=== PATIENT | male | born 1965 | race Caucasian/White ===

== ENCOUNTER 2020-09-30 03:49 | Observation (INO) | payer SELFPAY ==
[2020-09-30] VITALS (48 sets, daily range): BP systolic 107–172; BP diastolic 52–123; PULSE 75–152; RESP 9–57; TEMP 36.6–37.1; O2SAT 92–96; BMI 37.3
--- NOTE | 2020-09-30 03:50 | XRR_ITS ---
PROCEDURE INFORMATION: Exam: XR Chest Exam date and time: 09/30/2020 3:56 AM Age: 54 years old Clinical indication: Patient HX: Patient woke up feeling elevated heart rate. Afib on monitor. TECHNIQUE: Imaging protocol: XR of the chest. Views: 1 view. COMPARISON: No relevant prior studies available. FINDINGS: Lungs: There are multiple calcified pulmonary nodules consistent with prior granulomatous disease. Pleural spaces: Unremarkable. No pleural effusion. No pneumothorax. Heart/Mediastinum: Unremarkable. No cardiomegaly. Bones/joints: Unremarkable. XR/XR chest 1V portable [id number] IMPRESSION:
--- NOTE | 2020-09-30 03:51 | ECG_ITS ---
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 Measurements Intervals [place] Rate: 150 P: MO: QRS: 33 QRSD: 85 T: 0 QT: 151 QTc: 239 Interpretive Statements ATRIAL FLUTTER/TACHYCARDIA WITH RAPID VENTRICULAR RESPONSE NONSPECIFIC ST & T-WAVE ABNORMALITY CRITICAL TEST RESULT No previous ECG available for comparison Electronically Signed On 09-30-2020 23:45:38 CDT by Renato Malloy M.D. [id number] f
--- NOTE | 2020-09-30 04:08 | W.ED.GENADLT ---
HPI - General Adult General: Chief complaint: General Medical Stated complaint: afib Time Seen by Provider: 09/30/20 03:50 Source: patient Mode of arrival: ambulatory Limitations: no limitations History of Present Illness: HPI narrative: 54-year-old male states that he started having palpitations tonight at home. States he felt like his heart was racing he checked his heart rate and it was in the 150s. Patient here is in A. fib. He has no history of A. fib in the past. He denies any chest pain or shortness of breath. He denies having any palpitations like this in the past. He denies any worsening or improving factors. Associated symptoms: Reports palpitations; Deny dyspnea, headache(s), nausea, rash or vomiting Review of Systems Const: Denies: fever(s), chills, body aches or change in appetite Eyes: Denies: blurry vision or eye discomfort ENMT: Denies: throat pain or dental pain Card: Reports: palpitations and irregular heart rhythm Resp: Denies: dyspnea GI: Denies: abdominal pain, nausea, vomiting or diarrhea : Denies: dysuria Musc: Denies: neck pain or back pain Skin/Breast: Denies: rash Neuro: Denies: headache(s) Psych: Denies: depression Mark/Lymph: Denies: easy bruising All/Imm: Denies: urticaria Physical Exam Const: COMMON NORMALS: no acute distress, patient oriented x3 and healthy appearing HENMT: COMMON NORMALS: normocephalic and atraumatic HEAD & SCALP: normocephalic and atraumatic Eye: COMMON NORMALS: Equal, round and reactive pupils present and EOMs intact bilaterally PUPIL: Yes Equal, round and reactive pupils present Neck/C-Spine: COMMON NORMALS: full ROM and supple Chest: COMMONS NORMALS: normal inspection of the chest and normal palpation of entire chest wall Resp: COMMON NORMALS: normal respiratory effort, No retractions, No use of accessory muscles and clear to auscultation bilaterally AUSCULTATION: clear to auscultation bilaterally Cardio: COMMON NORMALS: No murmurs present (Cardio) RATE: tachycardic RHYTHM: abnormal rhythm irregularly irregular GI: COMMON NORMALS: Normal to inspection, nondistended, normoactive bowel sounds present, Soft to palpation, non-tender and no masses PALPATION: Yes Soft to palpation Extremity: COMMON NORMALS: normal to inspection and full ROM Neuro: COMMON NORMALS: patient oriented x3, moves all extremities and no focal motor deficits Psych: COMMON NORMALS: mental status grossly normal, Normal thought process present and cooperative THOUGHT PROCESS: Normal thought process present Skin: COMMON NORMALS: no rashes or lesions noted and no wounds GENERAL SKIN EXAM: no rashes or lesions noted Course Vital Signs: Vital signs: Vital Signs Temperature 98.5 F 09/30/20 03:59 Pulse Rate 78 09/30/20 04:58 Respiratory Rate 16 09/30/20 04:49 Blood Pressure 148/101 09/30/20 04:58 Pulse Oximetry 95 09/30/20 04:49 MDM - General Adult MDM Narrative: Medical decision making narrative: Patient presents here with new onset atrial flutter. Patient's heart rate was originally in the 150s is now improved here after Cardizem. I spoke to hospitalist will admit for his new onset atrial flutter. Patient's had no chest pain and has been well-appearing here. Lab Data: Labs: Lab Results 09/30/20 09/30/20 09/30/20 Range/Units 04:05 04:05 04:05 WBC 9.7 (4.0-10.0) 10^3/ uL RBC 5.98 H (4.1-5.3) 10^6/u L Hgb 18.1 H (11.7-16.6) g/dL Hct 52.3 H (42.0-52.0) % MCV 87.5 (80-94) fL MCH 30.3 (28.0-34.0) pg MCHC 34.6 (30.0-36.0) g/dL RDW 15.6 H (12.1-15.1) % Plt Count 205 (130-400) 10^3/c mm MPV 11.3 H (7.4-10.4) fL Neut % (Auto) 50.8 % Lymph % (Auto) 34.2 % Saline % (Auto) 10.8 % Eos % (Auto) 3.1 % Baso % (Auto) 0.8 % Neut # (Auto) 4.91 (1.8-7.7) 10^3/u L Lymph # (Auto) 3.3 (0.8-4.8) 10^3/u L Saline # (Auto) 1.0 H (0.2-0.9) 10^3/u L Eos # (Auto) 0.3 (0.0-0.8) 10^3/u L Baso # (Auto) 0.1 (0.0-0.1) 10^3/u L Nucleated RBC % (a uto) 0 % Nucleated RBCs # 0.0 /100WBC PT (12.1-14.9) SECO NDS INR (0.8-1.2) Sodium Cancelled Potassium Cancelled Chloride Cancelled Carbon Dioxide Cancelled Anion Gap Cancelled BUN Cancelled Creatinine Cancelled GFR Calculation Cancelled Glucose Cancelled Calculated Osmolal ity Cancelled Calcium Cancelled Total Bilirubin Cancelled AST Cancelled ALT Cancelled Alkaline Phosphata se Cancelled Troponin T Baselin e Cancelled Total Protein Cancelled Albumin Cancelled Globulin Cancelled 09/30/20 Range/Units 04:30 WBC (4.0-10.0) 10^3/ uL RBC (4.1-5.3) 10^6/u L Hgb (11.7-16.6) g/dL Hct (42.0-52.0) % MCV (80-94) fL MCH (28.0-34.0) pg MCHC (30.0-36.0) g/dL RDW (12.1-15.1) % Plt Count (130-400) 10^3/c mm MPV (7.4-10.4) fL Neut % (Auto) % Lymph % (Auto) % Saline % (Auto) % Eos % (Auto) % Baso % (Auto) % Neut # (Auto) (1.8-7.7) 10^3/u L Lymph # (Auto) (0.8-4.8) 10^3/u L Saline # (Auto) (0.2-0.9) 10^3/u L Eos # (Auto) (0.0-0.8) 10^3/u L Baso # (Auto) (0.0-0.1) 10^3/u L Nucleated RBC % (a uto) % Nucleated RBCs # /100WBC PT 12.90 (12.1-14.9) SECO NDS INR 0.94 (0.8-1.2) Sodium Potassium Chloride Carbon Dioxide Anion Gap BUN Creatinine GFR Calculation Glucose Calculated Osmolal ity Calcium Total Bilirubin AST ALT Alkaline Phosphata se Troponin T Baselin e Total Protein Albumin Globulin Imaging Data^: CXR: Attestation: I personally reviewed and interpreted this imaging study as follows: My impression: No acute abnormality EKG Data^: EKG 1: Attestation: I personally reviewed and interpreted this EKG as follows: EKG interpretation date: 09/30/20 EKG interpretation time: 04:17 Interpretation: atrial flutter hr [address] or t wave abnormalities qrs 85 qtc 236 EKG 2: Attestation: I personally reviewed and interpreted this EKG as follows: EKG interpretation date: 09/30/20 EKG interpretation time: 04:39 Interpretation: atrial flutter hr [address] or t wave abnormalities qrs 85 qtc 401 Critical Care Time Critical Care Time: Critical Care Time: Yes Total Critical Care Time: 36 Attestation: This case had a high probability of a clinically significant, sudden, or life threatening deterioration of this patient's condition which required my full and direct attention, intervention and personal management. Discharge Plan Discharge Patient Disposition: Admitted As Inpatient Clinical Impression: Atrial flutter Qualifiers: Atrial flutter type: unspecified Qualified Code(s): I48.92 - Unspecified atrial flutter Condition: Stable Coding Level of Care Code ED Physical Ther for [facility] Fwd Exam Comprehensive
[2020-09-30] MEDS: sodium chloride 0.9% 1,000 ML 999 ML IV (04:26)
[2020-09-30 04:28] LABS: Basophils # 0.1 10^3/uL (0.0-0.1); Basophils % 0.8 %; Eosinophils # 0.3 10^3/uL (0.0-0.8); Eosinophils % 3.1 %; Hematocrit 52.3 % (42.0-52.0); Hemoglobin 18.1 g/dL (11.7-16.6); Lymphocytes # 3.3 10^3/uL (0.8-4.8); Lymphocytes % 34.2 %; Mean Corpuscular HGB Conc 34.6 g/dL (30.0-36.0); Mean Corpuscular Hemoglobin 30.3 pg (28.0-34.0); Mean Corpuscular Volume 87.5 fL (80-94); Mean Platelet Volume 11.3 fL (7.4-10.4); Monocytes % 10.8 %; Neutrophils # 4.91 10^3/uL (1.8-7.7); Neutrophils % 50.8 %; Nucleated Red Blood Cells % 0 %; Platelet Count 205 10^3/cmm (130-400); Red Blood Count 5.98 10^6/uL (4.1-5.3); Red Cell Distribution Width 15.6 % (12.1-15.1); White Blood Count 9.7 10^3/uL (4.0-10.0)
--- NOTE | 2020-09-30 04:30 | ECG_ITS ---
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 Measurements Intervals [place] Rate: 74 P: VA: QRS: 38 QRSD: 85 T: -4 QT: 374 QTc: 416 Interpretive Statements ATRIAL FLUTTER/TACHYCARDIA ST DEVIATION AND MODERATE T-WAVE ABNORMALITY, CONSIDER INFERIOR ISCHEMIA [-0.1+ mV T WAVE IN II/aVF] Compared to ECG 09/30/2020 04:17:54 Possible ischemia now present T-wave abnormality still present Electronically Signed On 09-30-2020 23:45:43 CDT by Renato Malloy M.D. [id number] f
[2020-09-30 04:52] LABS: INR 0.94 (0.8-1.2)
[2020-09-30 05:16] LABS: Troponin(5th) Baseline 20 ng/L (0-15)
[2020-09-30 05:19] LABS: Alanine Aminotransferase 31 U/L (0-41); Alkaline Phosphatase 71 IU/L (40-130); Anion Gap 12.7 (5-19); Aspartate Amino Transferase 19 U/L (0-40); Blood Urea Nitrogen 16 mg/dL (6-20); Calcium 8.3 mg/dL (8.5-10.5); Carbon Dioxide 28 mmol/L (22-29); Chloride 103 mmol/L (98-107); Globulin 2.5 g/dL (1.3-4.6); Glucose 102 mg/dL (65-115); Osmolality Calculated 291 mOsm/kg (285-295); Potassium 3.7 mmol/L (3.5-5.1); Sodium 140 mmol/L (136-145); Total Bilirubin 0.5 mg/dL (0.15-1.2); Total Protein 6.5 g/dL (6.6-8.7)
--- NOTE | 2020-09-30 06:07 | PM.HP ---
Providers/Chief Complaint Admitting Physician: Mark Bran Primary Care Provider: Sathya Toledo MD Chief Complaint: afib History of Present Illness George Dubose JR is a 54 year old male With no significant past medical history who is presenting to the emergency room due to complaints of palpitation which started last night suddenly. Described as severe constant. No associated chest pain, shortness of breath, diaphoresis, dizziness or lightheadedness. Emergency room he is found to have atrial flutter with RVR. Heart rate of 150. He was given a bolus of diltiazem and started on diltiazem drip. Heart rate dropped to 70s. Currently he feels much better. His palpitations have resolved. He denies any similar episodes in the past. He does not take any medications except for testosterone prescribed by his primary care physician. Denies any history of thyroid disease, blood clots or bleeding disorders. No history of heart disease. Family history. Denies family history of atrial fibrillation. Social history. Reports regular alcohol. Denies tobacco and drugs. Review of Systems General: Reports: 10 or more systems reviewed and unremarkable except in HPI and below Medications/Allergies Allergies Allergy/AdvReac Type Severity Reaction Status Date / Time No Known Allergies Allergy Verified 09/30/20 04:06 Vitals/I&O/Wt Last Vital Signs Temp 98.5 F 09/30/20 03:59 Pulse 78 09/30/20 04:58 Resp 16 09/30/20 04:49 BP 148/101 09/30/20 04:58 Pulse Ox 95 09/30/20 04:49 Weight last 48 hrs Weight 124.738 kg Physical Exam Narrative: EXAM NARRATIVE: Currently the patient is awake alert oriented. No acute distress. Mood and affect are appropriate. Responses are adequate. Eyes PERRL, extraocular muscles are intact Normal speech No facial asymmetry Neck is supple. No JVD Lungs are clear to auscultation bilaterally. No wheezes or crackles Heart S1, S2, irregular Abdomen soft, obese, nontender, bowel sounds are present Extremities no edema cyanosis or calf tenderness bilaterally No focal weakness. Data : 09/30/20 04:05 09/30/20 04:45 Other Labs: Laboratory Results WBC 9.7 10^3/uL (4.0-10.0) 09/30/20 04:05 RBC 5.98 10^6/uL (4.1-5.3) H 09/30/20 04:05 Hgb 18.1 g/dL (11.7-16.6) H 09/30/20 04:05 Hct 52.3 % (42.0-52.0) H 09/30/20 04:05 MCV 87.5 fL (80-94) 09/30/20 04:05 MCH 30.3 pg (28.0-34.0) 09/30/20 04:05 MCHC 34.6 g/dL (30.0-36.0) 09/30/20 04:05 RDW 15.6 % (12.1-15.1) H 09/30/20 04:05 Plt Count 205 10^3/cmm (130-400) 09/30/20 04:05 MPV 11.3 fL (7.4-10.4) H 09/30/20 04:05 Neut % (Auto) 50.8 % 09/30/20 04:05 Lymph % (Auto) 34.2 % 09/30/20 04:05 Ralls % (Auto) 10.8 % 09/30/20 04:05 Eos % (Auto) 3.1 % 09/30/20 04:05 Baso % (Auto) 0.8 % 09/30/20 04:05 Neut # (Auto) 4.91 10^3/uL (1.8-7.7) 09/30/20 04:05 Lymph # (Auto) 3.3 10^3/uL (0.8-4.8) 09/30/20 04:05 Ralls # (Auto) 1.0 10^3/uL (0.2-0.9) H 09/30/20 04:05 Eos # (Auto) 0.3 10^3/uL (0.0-0.8) 09/30/20 04:05 Baso # (Auto) 0.1 10^3/uL (0.0-0.1) 09/30/20 04:05 Nucleated RBC % (auto) 0 % 09/30/20 04:05 Nucleated RBCs # 0.0 /100WBC 09/30/20 04:05 PT 12.90 SECONDS (12.1-14.9) 09/30/20 04:30 INR 0.94 (0.8-1.2) 09/30/20 04:30 Sodium 140 mmol/L (136-145) 09/30/20 04:45 Potassium 3.7 mmol/L (3.5-5.1) 09/30/20 04:45 Chloride 103 mmol/L (98-107) 09/30/20 04:45 Carbon Dioxide 28 mmol/L (22-29) 09/30/20 04:45 Anion Gap 12.7 (5-19) 09/30/20 04:45 BUN 16 mg/dL (6-20) 09/30/20 04:45 Creatinine 0.8 mg/dL (0.7-1.2) 09/30/20 04:45 GFR Calculation 100.0 mL/min (90-130) 09/30/20 04:45 Glucose 102 mg/dL (65-115) 09/30/20 04:45 Calculated Osmolality 291 mOsm/kg (285-295) 09/30/20 04:45 Calcium 8.3 mg/dL (8.5-10.5) L 09/30/20 04:45 Total Bilirubin 0.5 mg/dL (0.15-1.2) 09/30/20 04:45 AST 19 U/L (0-40) 09/30/20 04:45 ALT 31 U/L (0-41) 09/30/20 04:45 Alkaline Phosphatase 71 IU/L (40-130) 09/30/20 04:45 Troponin T Baseline 20 ng/L (0-15) H 09/30/20 04:45 Total Protein 6.5 g/dL (6.6-8.7) L 09/30/20 04:45 Albumin 4.0 g/dL (3.5-5.2) 09/30/20 04:45 Globulin 2.5 g/dL (1.3-4.6) 09/30/20 04:45 I was unable to locate his EKG. However spoke with Dr. Herrera. According to him no acute ischemic changes. Atrial flutter with RVR. Chest x-ray reviewed personally. No evidence of acute cardiopulmonary abnormalities. Please review official radiology report when it is available. A&P Additional A&P Information 54-year-old male with no significant past medical history who is presenting with palpitation and is found to have atrial flutter with RVR. A flutter with RVR. Currently on diltiazem drip with controlled heart rate. We will admit him for observation to stepdown unit. We will continue diltiazem drip. Will request cardiology evaluation in the morning. We will check his TSH and fasting lipids. Possible dehydration. Hemoglobin is elevated. Most likely due to testosterone therapy. However dehydration is also possible. We will hydrate him gently and reevaluate. EtOH. Reports daily alcohol use. We will start him on thiamine. Most likely he will be discharged home soon and I do not expect him to develop withdrawals. However if he remains in the hospital [facility] protocol management would be appropriate. DVT prophylaxis. Lovenox. CODE STATUS. He wants to be full code. The plan of care was discussed with the patient and his . They verbalized understanding and agreement. Attestations Medical Necessity Statement*: Observation Coding Level of Care Code Acute Automotive Technology Instructor for Frankie Dial
[2020-09-30 06:49] LABS: Chol HDL Ratio 5.74 mg/dL (1.0-5.00); Cholesterol 195 mg/dL (0-200); HDL Cholesterol 34 mg/dL (60-100); LDL Cholesterol Calculated 94 mg/dL (50-129); LDL HDL Ratio 2.76 RATIO (0.00-3.22); Magnesium 2.1 mg/dL (1.7-2.3); Thyroid Stimulating Hormone 5.32 uIU/mL (0.27-4.20); Triglycerides 334 mg/dL (0-150)
[2020-09-30 07:36] LABS: Troponin 5 2HR 14.92 ng/L (0-15); Troponin 5 2HR Delta -5.08 ABS# (0-10)
--- NOTE | 2020-09-30 08:13 | USCV_ITS ---
Sedrick SOTO George Age: 54 Gender: M : 1965 Exam Date: 09/30/2020 10:34 Ordering Phys: Jose Driscoll MD Technologist: RASHMI [place] [facility] [place]: AFIB BP: 114 / 71 HR: 74 Rhythm: Sinus Technical Quality: Adequate MEASUREMENTS (Male / Female) Normal Values 2D ECHO LV Diastolic Diameter PLAX 3.5 cm 4.2 - 5.9 / 3.9 - 5.3 cm LV Systolic Diameter PLAX 1.8 cm LV Chamber Size 3.4 cm IVS Diastolic Thickness 2.0 cm 0.6 - 1.0 / 0.6 - 0.9 cm IVS Systolic Thickness 2.0 cm LVPW Diastolic Thickness 1.9 cm 0.6 - 1.0 / 0.6 - 0.9 cm LVPW Systolic Thickness 2.6 cm RV Chamber Size 3.6 cm LVOT Diameter 2.0 cm LV Ejection Fraction 2D Teich 79.6 % LV Ejection Fraction MOD 2C 38.2 % LV Ejection Fraction 2C AL 42.4 % LA Diameter 3.5 cm LA Width 2.9 cm LA Height 4.8 cm RA Width 2.5 cm RA Height 4.1 cm Aorta at Sinotubular Diameter 3.0 cm M-MODE LV Diastolic Diameter MM 4.0 cm 4.2 - 5.9 / 3.9 - 5.3 cm LV Systolic Diameter MM 2.4 cm LV Ejection Fraction MM Teich 72.2 % IVS Diastolic Thickness MM 1.2 cm 0.6 - 1.0 / 0.6 - 0.9 cm IVS Systolic Thickness MM 1.2 cm LVPW Diastolic Thickness MM 1.0 cm 0.6 - 1.0 / 0.6 - 0.9 cm LVPW Systolic Thickness MM 1.7 cm Aortic Annulus Diameter 3.7 cm LA Ao Ratio MM 1.0 MV E Point Septal Separation 0.9 cm DOPPLER AV Peak Velocity 133.0 cm/s LVOT Peak Velocity 125.7 cm/s AV Area Cont Eq vti 2.7 cm squared AV Area Cont Eq pk 3.0 cm squared MV Area PHT 4.3 cm squared Mitral E to A Ratio 3.5 MV E' Velocity 53.0 cm/s Mitral E to MV E' Ratio 5.8 Mitral E to LV E' Lateral Ratio 5.7 Mitral E to LV E' Septal Ratio 5.9 TR Peak Velocity 189.0 cm/s TR Peak Gradient 14.3 mmHg TV Peak E Velocity 78.0 cm/s Right Atrial Pressure 3.0 mmHg Pulmonary Artery Systolic Pressu 17.3 mmHg PV Peak Velocity 84.0 cm/s RV Acceleration Time 0.1 s RV Ejection Time 0.3 s RV AcT/ET 0.4 FINDINGS Left Ventricle Normal left ventricular cavity size. Normal left ventricular systolic function. No regional wall motion abnormalities. Left ventricular ejection fraction is estimated at 65 %. Grade II/IV diastolic dysfunction, moderately elevated filling pressures. Right Ventricle The right ventricle is normal in size and function. Right Atrium The right atrium is normal in size. Left Atrium The left atrium is normal in size. Mitral Valve Structurally normal mitral valve without significant stenosis or prolapse. There is no mitral regurgitation. Aortic Valve Structurally normal aortic valve without significant sclerosis or stenosis. There is no aortic regurgitation. Tricuspid Valve Structurally normal tricuspid valve without significant stenosis or regurgitation. Pulmonary artery systolic pressure is normal. Pulmonic Valve Structurally normal pulmonic valve without significant stenosis. There is no pulmonic regurgitation. Pericardium Normal pericardium without effusion. Aorta Normal ascending aorta dimension. CONCLUSIONS 1-Normal left ventricular cavity size. Normal left ventricular systolic function. No regional wall motion abnormalities. Left ventricular ejection fraction is estimated at 65 %. Grade II/IV diastolic dysfunction, moderately elevated filling pressures. 2-There is no pericardial effusion. 3-No significant valve abnormalities. 4-Pulmonary artery systolic pressure is within normal limits. 5-Right atrial pressure is around 5 mm of mercury. 6-There are no prior echocardiogram studies to compare. Gi Stoll MD (Electronically Signed) Final Date: 30 Sep 2020 21:04 S
[2020-09-30 08:43] LABS: D Dimer 0.31 ug/mIFEU (0-0.59)
[2020-09-30 08:47] LABS: NT Pro B Type Natriuretic Pept 504 pg/mL (0-125)
[2020-09-30] MEDS: dilTIAZem 60 mg Tablet PO ×3 (09:13→20:02)
[2020-09-30] MEDS: enoxaparin 40 mg/0.4 mL Syringe SUBCUT (09:14)
[2020-09-30] MEDS: thiamine 100 mg Tablet PO (09:15)
[2020-09-30] MEDS: sodium chloride 0.9% 1,000 ML 75 ML IV (09:16)
--- NOTE | 2020-09-30 09:40 | PC.CHAP ---
Pastoral Care Encounter/Spiritual Assessment Type of Contact [] Declined other spatial scientist visit [] Patient/Family/Request visit [] Outpatient visit [] Follow-up visit [] Physician referral [] Code/Alert [x] Routine visit [] Staff referral [] Actively dying [] Patient sleeping [] Family support [] [] Out of room [] Palliative care [] [x] Receiving care in room [] Pre-surgical visit [] Trauma [] Long length of stay [] ICU visit [] Other: Relational/Emotional Strength [x] Patient feels connected with others/family/visitors/staff [x] Distress [] Loneliness/isolation [] Abandonment Spirituality of Patient [x] Person of Corrine [] Attends Judaism of their [place] [x] Believes in Prayer [] Reads Bible or Voodoo materials [] There are Spiritual issues to be addressed Access Clerk Interventions [x] Prayer [x] Active listening [x] Non-anxious presence [x] Spiritual/emotional support [] Crisis/trauma care [x] Spiritual counseling [] Bereavement support [] Provided bereavement packet [] Provided Bible/devotional materials [] Provided toy/stuffed animal, coloring book to patient or family member [] Provided Communion [] Anointing/[place] [] Salvation [x] Completed spiritual assessment [] Other: Impact on Illness or Injury [] Angry [] Fearful [x] Anxious [] Often cries [] Exhaustion [] Unable to work [] Unable to attend mu-ism [] Unable to walk/stand [] Unable to read [] Unable to drive [] Unable to eat/drink [] Unable to sleep [] Unable to be with family [] Patient intubated [] Other: Summary A-jun his heart going lilliam to nornal going home, has a good attitude Time spent with patient 10 mins
--- NOTE | 2020-09-30 09:51 | ECG_ITS ---
[facility] Test Date: 2020-09-30 Pat Name: George Dubose JR Department: Room: 105 Gender: Male Trouble Clerk: : 1965 Requested By: Mariela Herrera Order Number: [id number] Ruddy MD: Renato Malloy M.D. Measurements Intervals [place] Rate: 86 P: MO: QRS: 29 QRSD: 84 T: 0 QT: 184 QTc: 220 Interpretive Statements ATRIAL FLUTTER/TACHYCARDIA NONSPECIFIC ST & T-WAVE ABNORMALITY ABNORMAL RHYTHM ECG Compared to ECG 09/30/2020 04:39:38 Possible ischemia no longer present T-wave abnormality still present Electronically Signed On 10-01-2020 0:05:13 CDT by Renato Malloy M.D. [id number]
[2020-09-30 11:26] LABS: Troponin 5 6HR 15.24 ng/L (0-15)
[2020-09-30 11:27] LABS: Troponin 5 6HR Delta -4.76 ng/L (0-12)
[2020-09-30 12:09] LABS: Free T4 Free Thyroxine 1.53 ng/dL (0.82-1.77); T3 Free 3.7 PG/ML (2.0-4.4)
[2020-09-30 12:42] LABS: Iron 61 ug/dL (59-158); Percent Saturation 21.4 % (20-50); Total Iron Binding Capacity 285 mcg/dl; Unsaturated Iron Binding 224 ug/dL (112-347)
--- NOTE | 2020-09-30 16:02 | P.PN_ITS ---
Subjective Subjective: Interval history: Admitted early in the morning. During the day Cardizem drip was transitioned off and he was started on oral Cardizem therapy. On examination he was on 5 mg IV Cardizem. Heart rate of 90 bpm a flutter. He states stent with her the first time he felt palpitations. Denies any nausea vomiting, headache, difficulty in breathing or dizziness. 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 He thinks he has sleep apnea and has never been tested for it. Discussed in detail with the patient regarding need of anticoagulation. Discussed risk factors versus benefits. Patient has agreed to start on anticoagulation. Vitals/I&O/Wt Last Vital Signs Temp 98.7 F 09/30/20 15:19 Pulse 77 09/30/20 14:45 Resp 16 09/30/20 14:45 BP 163/87 09/30/20 14:45 Pulse Ox 92 09/30/20 14:00 Weight last 48 hrs Weight 124.738 kg Physical Exam Narrative: EXAM NARRATIVE: Currently the patient is awake alert oriented. No acute distress. Mood and affect are appropriate. Responses are adequate. Eyes PERRL, extraocular muscles are intact Normal speech No facial asymmetry Neck is supple. No JVD Lungs are clear to auscultation bilaterally. No wheezes or crackles Heart S1, S2, irregular Abdomen soft, obese, nontender, bowel sounds are present Extremities no edema cyanosis or calf tenderness bilaterally No focal weakness. Data : 09/30/20 04:05 09/30/20 04:45 A&P Assessment and plan (1) Atrial flutter: Status: Acute Qualifiers: Atrial flutter type: unspecified Qualified Code(s): I48.92 - Unspecified atrial flutter Additional A&P Information 54-year-old male with no significant past medical history who is presenting with palpitation and is found to have atrial flutter with RVR. A flutter with RVR: Cardizem 60 mg every 6 hours. Wean off Cardizem drip. If patient remains in a flutter for more than 24 hours we will start him on anticoagulation. Most likely Xarelto as it would be cheaper for the patient as he has run out of his insurance. We will ask case management to follow-up with [facility] for [place]. Most likely patient has sleep apnea. Overnight pulse oximetry study. TSH. Echocardiogram. Alcohol use: Reports daily alcohol use. Continue with oral thiamine. Check iron panel, vitamin B12, folate levels. CIWA protocols. DVT prophylaxis. Lovenox. Cardiac diet CODE STATUS. He wants to be full code. The plan of care was discussed with the patient and his . They verbalized understanding and agreement. Attestations Medical Necessity Statement*: Requires further hospitalization for management of atrial flutter with fibrillation with rapid ventricular response while he is weaned off the Cardizem drip. Time Spent in Patient Care: Greater than 35 minutes (>than 50% of time spent in counselling and/or direct pt care on unit) . Coding Level of Care Code Acute Courtesy Clerk for Farnkie Dial Diagnoses Atrial flutter I48.92 Atrial flutter type: unspecified
[2020-09-30] MEDS: acetaminophen 325 mg Tablet 650 MG PO (20:03)
--- NOTE | 2020-09-30 23:36 | PC.NURSE ---
Pt got up to use the restroom before bed. When he was hooked back up to the monitor it was noted that his heart rate was 150s A-flutter with RVR. Pt is noted to be alert and oriented x 4 with no acute complaints. Approximately 30 minutes later the patient called this nurse to his room and stated that he was having some lightheadedness and dizziness. Pt is sweating only on his forehead but not diaphoretic elsewhere. Pt was asked about possible drinking habits and withdraw and he denies any potential for withdraw and denies being a daily drinker. Dr. Bran notified and requested orthostatic vitals to be obtained and to notify him with results.
[2020-10-01] VITALS (10 sets, daily range): BP systolic 136–164; BP diastolic 72–98; PULSE 55–135; RESP 11–28; TEMP 36.6–36.9; O2SAT 23–96
[2020-10-01] MEDS: dilTIAZem 60 mg Tablet PO ×2 (01:58→09:25)
--- NOTE | 2020-10-01 02:06 | PC.NURSE ---
Patient rolled over from a left lateral position to a semi-ro position to take his 0200 po cardizem and his heart rate increased to 140 but did not sustain. Pt denied any complaints at this time.
[2020-10-01 03:55] LABS: Basophils # 0.1 10^3/uL (0.0-0.1); Basophils % 0.6 %; Eosinophils # 0.2 10^3/uL (0.0-0.8); Eosinophils % 2.8 %; Hematocrit 51.7 % (42.0-52.0); Hemoglobin 17.3 g/dL (11.7-16.6); Lymphocytes # 2.7 10^3/uL (0.8-4.8); Lymphocytes % 32.6 %; Mean Corpuscular HGB Conc 33.5 g/dL (30.0-36.0); Mean Corpuscular Hemoglobin 29.8 pg (28.0-34.0); Mean Corpuscular Volume 89.1 fL (80-94); Mean Platelet Volume 10.8 fL (7.4-10.4); Monocytes # 0.7 10^3/uL (0.2-0.9); Monocytes % 7.9 %; Neutrophils # 4.58 10^3/uL (1.8-7.7); Neutrophils % 55.9 %; Nucleated Red Blood Cells % 0 %; Platelet Count 207 10^3/cmm (130-400); Red Cell Distribution Width 13.6 % (12.1-15.1); White Blood Count 8.2 10^3/uL (4.0-10.0)
[2020-10-01 04:27] LABS: Alanine Aminotransferase 30 U/L (0-41); Albumin Level 4.1 g/dL (3.5-5.2); Alkaline Phosphatase 73 IU/L (40-130); Anion Gap 16.1 (5-19); Aspartate Amino Transferase 18 U/L (0-40); Blood Urea Nitrogen 11 mg/dL (6-20); Calcium 7.8 mg/dL (8.5-10.5); Carbon Dioxide 24 mmol/L (22-29); Chloride 105 mmol/L (98-107); Globulin 2.9 g/dL (1.3-4.6); Glomerular Filtration Rate 116.7 mL/min (90-130); Glucose 96 mg/dL (65-115); Magnesium 2.3 mg/dL (1.7-2.3); Osmolality Calculated 291 mOsm/kg (285-295); Phosphorus 2.7 mg/dL (2.5-4.5); Potassium 4.1 mmol/L (3.5-5.1); Sodium 141 mmol/L (136-145); Total Bilirubin 0.5 mg/dL (0.15-1.2)
[2020-10-01 04:30] LABS: Estmated Average Glucose 108; Hemoglobin A1C 5.4 % (4.0-6.0)
[2020-10-01] MEDS: enoxaparin 40 mg/0.4 mL Syringe SUBCUT (06:28)
[2020-10-01] MEDS: folic acid 1 mg Tablet PO (09:25)
[2020-10-01] MEDS: thiamine 100 mg Tablet PO (09:26)
[2020-10-01] MEDS: multivitamin therapeutic Tablet 1 TAB PO (09:26)
[2020-10-01] MEDS: rivaroxaban 10 mg Tablet 20 MG PO (10:38)
[2020-10-01] MEDS: FUROsemide 20 mg Tablet PO (10:39)
[2020-10-01] MEDS: dilTIAZem 30 mg Tablet PO (10:52)
--- NOTE | 2020-10-01 12:08 | PC.CHAP ---
Pastoral Care Encounter/Spiritual Assessment Type of Contact [] Declined support coordinator visit [] Patient/Family/Request visit [] Outpatient visit [] Follow-up visit [] Physician referral [] Code/Alert [xx] Routine visit [] Staff referral [] Actively dying [] Patient sleeping [] Family support [] [] Out of room [] Palliative care [] [] Receiving care in room [] Pre-surgical visit [] Trauma [] Long length of stay [] ICU visit [] Other: Relational/Emotional Strength [xx] Patient feels connected with others/family/visitors/staff [] Distress [] Loneliness/isolation [] Abandonment Spirituality of Patient [] Person of Corrine [] Attends Evangelical of their Corrine [] Believes in Prayer [] Reads Bible or Quaker materials [] There are Spiritual issues to be addressed Sports Marketer Interventions [] Prayer [xx] Active listening [xx] Non-anxious presence [] Spiritual/emotional support [] Crisis/trauma care [] Spiritual counseling [] Bereavement support [] Provided bereavement packet [] Provided Bible/devotional materials [] Provided toy/stuffed animal, coloring book to patient or family member [] Provided Communion [] Anointing/[place] [] Salvation [xx] Completed spiritual assessment [] Other: Impact on Illness or Injury [] Angry [] Fearful [] Anxious [] Often cries [] Exhaustion [] Unable to work [] Unable to attend mormon [] Unable to walk/stand [] Unable to read [] Unable to drive [] Unable to eat/drink [] Unable to sleep [] Unable to be with family [] Patient intubated [] Other: Summary and 2 daughters present. Patient declined prayer as not interested. visit kept short. Time spent with patient 4 minutes
--- NOTE | 2020-10-01 12:53 | PM.CONSULT ---
Providers/Reason For Consult Consulting Physican/Specialty*: Eros Snow MD/ Cardiology Reason for Consult*: Atrial flutter with RVR Requesting Physcian: Jose Driscoll MD Attending Physician: Jose Driscoll MD Primary Care Provider: Sathya Toledo MD History of Present Illness History of Present Illness 54 year old male with no significant past medical history presented to the hospital with significant palpitations that started the night before presentation. He denied any chest pain or shortness of breath. In the emergency room he was found to have a heart rate of 150 bpm. He was put on a Cardizem drip that dropped heart rate to 70s. Patient's baseline heart rate has been staying around 70 to 80 bpm however as soon as he starts to walk or do any exertion, his heart rate jumps to 140s to 150s. He has been started on Xarelto. His blood pressure is also elevated. Patient has regular alcohol. Cardiology was consulted for further management. Review of Systems General: Reports: 10 or more systems reviewed and unremarkable except in HPI and below Eyes: Denies: change in vision ENMT: Denies: throat pain Card: Reports: palpitations Resp: Denies: dyspnea GI: Denies: abdominal pain : Denies: flank pain Neuro: Denies: headache(s) Meds/Allergies Home Medications and Allergies Home Medications Medication Instructions Recorded Confirmed Last Taken Type testosterone cypionate 200 mg IM Q7D 09/30/20 09/30/20 09/23/20 History diltiazem HCl [Cardizem CD] 120 mg PO Q24H #90 cap 10/02/20 Unknown Rx lisinopril 5 mg PO DAILY #90 tab 10/02/20 Unknown Rx rivaroxaban [Xarelto] 20 mg PO DAILY 90 Days #90 tab 10/02/20 Unknown Rx Allergies Allergy/AdvReac Type Severity Reaction Status Date / Time No Known Allergies Allergy Verified 09/30/20 04:06 Current Medications Current Medications Generic Name Dose Route Start Last Admin Trade Name Freq PRN Reason Stop Dose Admin Acetaminophen 650 mg 09/30/20 05:58 09/30/20 20:03 Acetaminophen 325 Mg Tablet PO 650 mg Q6H PRN Administration Mild/Mod Pain Or Temp >/= 101 Folic Acid 1 mg 10/01/20 09:00 10/01/20 09:25 Folic Acid 1 Mg Tablet PO 1 mg DAILY DEYA Administration Furosemide 20 mg 10/01/20 10:15 10/01/20 10:39 Furosemide 20 Mg Tablet PO 20 mg DAILY@0800 DEYA Administration Multivitamins Therapeutic 1 tab 10/01/20 09:00 10/01/20 09:26 Multivitamin Therapeutic Tablet PO 1 tab DAILY DEYA Administration Rivaroxaban 20 mg 10/01/20 10:15 10/01/20 10:38 Rivaroxaban 10 Mg Tablet PO 20 mg DAILY DEYA Administration Thiamine Mononitrate 100 mg 09/30/20 09:00 10/01/20 09:26 Thiamine 100 Mg Tablet PO 100 mg DAILY DEYA Administration PFSH Acute PFSH: Social History Alcohol intake: current Vitals/I&O/Wt Last Vital Signs Temp 98.2 F 10/01/20 07:36 Pulse 77 10/01/20 07:36 Resp 21 H 10/01/20 07:36 BP 142/92 10/01/20 07:36 Pulse Ox 95 10/01/20 07:36 09/30/20 10/01/20 10/01/20 22:59 06:59 14:59 Intake Total 2225 / 2225 120 / 120 Balance 2225 / 2225 120 / 120 Weight last 48 hrs Weight 275 lb Physical Exam Narrative: EXAM NARRATIVE: GENERAL: Patient is alert, awake and oriented x3. [] NECK: No jugular vein distension. [] HEENT: No cyanosis. No icterus. No pallor. [] HEART: Regular S1 and S2. No murmur, rub or gallop. [] LUNGS: Clear to auscultate bilaterally. [] ABDOMEN: Soft, nontender and nondistended. Positive bowel sounds. No guarding, rebound or tenderness. [] CENTRAL NERVOUS SYSTEM: Grossly nonfocal. [] EXTREMITIES: Lower extremities with no edema bilaterally. Pulses palpable in the lower extremities, both dorsalis pedis and posterior tibial. [] A&P Assessment and plan (1) Atrial flutter: Status: Acute Qualifiers: Atrial flutter type: unspecified Qualified Code(s): I48.92 - Unspecified atrial flutter (2) Hypertension: Status: Acute Patient has presented with new onset atrial flutter with RVR. Will recommend initiating anticoagulation Continue Cardizem p.o. and uptitrate to 90 mg every 6. If by tomorrow heart rates are not controlled, we will perform AQUILES cardioversion Had a detailed discussion regarding potential risk factors for atrial flutter/A. fib. I have informed him that his alcohol intake is a potential trigger. Also advised to avoid caffeine. Thank you for involving us with care of this patient. We will continue to follow. 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
[2020-10-01] MEDS: dilTIAZem 60 mg Tablet 90 MG PO ×2 (15:22→20:38)
--- NOTE | 2020-10-01 17:43 | P.PN_ITS ---
Subjective Subjective: Interval history: Patient seen in room today with multiple family members at bedside. Seen multiple times during the day. Overnight patient has remained comfortable but heart rate jumps up to 130s on minimal exertion. On examination patient's heart rate ranging between 70-80 beats minute at rest but goes up to 120 when he stands up and settles down to 80 within a minute of sitting down. Patient denies of any nausea, vomiting, headache, chest pain, difficulty breathing but has occasional dizziness on standing up. Patient blood pressures have remained stable. There is one occasion on telemetry when heart rate has gone down to 50s overnight. Patient seems anxious regarding the further course of treatment. Different modalities of treatment were discussed in detail including rate control right now with Cardizem and anticoagulation with Xarelto and follow-up as an outpatient with cardiology within 3 months for possible AQUILES cardioversion versus AQUILES cardioversion at present hospitalization versus ablation as an outpatient. We discussed that we are not really sure for how long patient has had flutter and AQUILES is a better modality to rule out IDA thrombus though it is not full proof and and initiate AQUILES cardioversion puts him at a higher risk of a possible stroke. Patient verbalized understanding but is unable to make any decision for now. He request for cardiology consultation. Vitals/I&O/Wt Last Vital Signs Temp 97.8 F 10/01/20 15:27 Pulse 72 10/01/20 15:32 Resp 11 L 10/01/20 15:27 BP 136/72 10/01/20 15:27 Pulse Ox 96 10/01/20 15:32 10/01/20 10/01/20 10/01/20 06:59 14:59 22:59 Intake Total 360 / 360 Balance 360 / 360 Weight last 48 hrs Weight 124.738 kg Physical Exam Narrative: EXAM NARRATIVE: Currently the patient is awake alert oriented. No acute distress. Mood and affect are appropriate. Responses are adequate. Eyes PERRL, extraocular muscles are intact Normal speech No facial asymmetry Neck is supple. No JVD Lungs are clear to auscultation bilaterally. No wheezes or crackles Heart S1, S2, irregular Abdomen soft, obese, nontender, bowel sounds are present Extremities no edema cyanosis or calf tenderness bilaterally No focal weakness. Data : 10/01/20 03:05 10/01/20 03:05 A&P Assessment and plan (1) Atrial flutter: Status: Acute Qualifiers: Atrial flutter type: unspecified Qualified Code(s): I48.92 - Unspecified atrial flutter Additional A&P Information 54-year-old male with no significant past medical history who is presenting with palpitation and is found to have atrial flutter with RVR. A flutter with RVR: Increase Cardizem to 90 every 6 hours for now. Ambulate patient in the room to monitor for heart rate. Start patient on Xarelto 20 mg daily. Xarelto will be cheaper for patient with [facility] as compared to Eliquis. Cardiology consultation. If patient's heart rate continues to be labile most likely patient would benefit from AQUILES cardioversion. Echocardiogram results appreciated for an EF of 65% with grade 2 diastolic dysfunction, no MR. Lasix 20 mg daily. Appreciate TSH levels. Alcohol use: Reports daily alcohol use. Continue with oral thiamine. Check iron panel, vitamin B12, folate levels. CIWA protocols. Xarelto will have a DVT prophylaxis as well. Cardiac diet CODE STATUS. He wants to be full code. The plan of care was discussed with the patient and his family members at bedside. They verbalized understanding and agreement. Attestations Medical Necessity Statement*: Patient requires further hospitalization for management of a flutter with RVR. Time Spent in Patient Care: Greater than 35 minutes (>than 50% of time spent in counselling and/or direct pt care on unit) . Coding Level of Care Code Acute Workshop Manager for [facility] Diagnoses Atrial flutter I48.92 Atrial flutter type: unspecified
[2020-10-02] VITALS (9 sets, daily range): BP systolic 132–160; BP diastolic 80–92; PULSE 73–88; RESP 14–23; TEMP 36.7–36.8; O2SAT 93–96
--- NOTE | 2020-10-02 04:11 | PC.NURSE ---
Spoke with Dr. Bran regarding this patient's order for 90mg of PO cardizem. the patient's current heart rate is between 48-[address] Bran we will hold this dose until the morning to let the primary physicians determine how to proceed.
[2020-10-02] MEDS: dilTIAZem 60 mg Tablet 90 MG PO (05:32)
--- NOTE | 2020-10-02 06:23 | PC.NURSE ---
Pt woke up and began to move around this morning and his HR climbed up to 130s. Cardizem 90mg PO administered. Dr. Bran on the unit and was notified.
--- NOTE | 2020-10-02 08:41 | USCV_ITS ---
George Dubose JR Age: 54 Gender: M : 1965 Exam Date: 10/02/2020 10:08 Ordering Phys: Eros Snow M.D ([email or web address]) Technologist: Mindy Valdivia [place] [facility] [place]ication: AQUILES/ Cardioversion BP: / HR: Rhythm: Sinus Technical Quality: MEASUREMENTS (Male / Female) Normal Values Medications Complications None Proc. Components FINDINGS Left Ventricle LV systolic function is normal Right Ventricle Normal size and function Right Atrium Grossly normal Left Atrium Grossly normal LA Appendage IDA does not demonstrate thrombus in it. PW doppler velocities are normal IA Septum Normal Mitral Valve Normal. Aortic Valve Tricuspid aortic valve Tricuspid Valve Grossly normal Pulmonic Valve Not well visualized Pericardium Normal Aorta Has mild plaque CONCLUSIONS This exam was completed on a [employer] Blendsa Aplio 500 with a [id number] Transesophogeal transducer. Normal LV systolic function No IDA thrombus seen Eros Snow MD (Electronically Signed) Final Date: 02 Oct 2020 16:17 S
--- NOTE | 2020-10-02 08:58 | PM.PN ---
Subjective Subjective: Interval history: Patient's heart rate was again increasing into 150s on minimal exertion. We have performed successful AQUILES guided cardioversion. No IDA thrombus seen. He is now in normal sinus rhythm. Vitals/I&O/Wt Last Vital Signs Temp 98.3 F 10/02/20 07:22 Pulse 76 10/02/20 07:22 Resp 23 H 10/02/20 07:22 BP 140/80 10/02/20 07:22 Pulse Ox 94 10/02/20 07:22 10/01/20 10/02/20 10/02/20 22:59 06:59 14:59 Intake Total 293 / 653 0 / 653 Output Total 0 / 0 Balance 293 / 653 0 / 653 Physical Exam Narrative: EXAM NARRATIVE: GENERAL: Patient is alert, awake and oriented x3. [] NECK: No jugular vein distension. [] HEENT: No cyanosis. No icterus. No pallor. [] HEART: Regular S1 and S2. No murmur, rub or gallop. [] LUNGS: Clear to auscultate bilaterally. [] ABDOMEN: Soft, nontender and nondistended. Positive bowel sounds. No guarding, rebound or tenderness. [] CENTRAL NERVOUS SYSTEM: Grossly nonfocal. [] EXTREMITIES: Lower extremities with no edema bilaterally. Pulses palpable in the lower extremities, both dorsalis pedis and posterior tibial. [] Data : 10/01/20 03:05 10/01/20 03:05 A&P Assessment and plan (1) Atrial flutter: Status: Acute Qualifiers: Atrial flutter type: unspecified Qualified Code(s): I48.92 - Unspecified atrial flutter (2) Hypertension: Status: Acute Patient has presented with new onset atrial flutter with RVR. His heart rates were not getting controlled with Cardizem. He underwent successful cardioversion with 100 J shock x1. Patient has been informed that he cannot miss any doses of anticoagulation as risk of stroke is elevated post cardioversion. He shows understanding. Had a detailed discussion regarding potential risk factors for atrial flutter/A. fib. I have informed him that his alcohol intake is a potential trigger. Also advised to avoid caffeine. Thank you for involving us with care of this patient. We will continue to follow. Please call with questions Attestations Medical Necessity Statement*: Care expected to cross 2 midnights. 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
[2020-10-02] MEDS: multivitamin therapeutic Tablet 1 TAB PO (09:32)
[2020-10-02] MEDS: folic acid 1 mg Tablet PO (09:32)
[2020-10-02] MEDS: thiamine 100 mg Tablet PO (09:32)
[2020-10-02] MEDS: FUROsemide 20 mg Tablet PO (09:33)
[2020-10-02] MEDS: rivaroxaban 10 mg Tablet 20 MG PO (09:33)
[2020-10-02] MEDS: sodium chloride 0.9% 1,000 ML 30 ML IV (09:33)
--- NOTE | 2020-10-02 11:02 | P.ANESASSM_ITS ---
Pre-Anesthetic Assessment Pre-Anesthetic Assessment: Height/Weight: Height 1.83 m Weight 124.738 kg Temp Pulse Resp BP Pulse Ox 98.3 F 76 23 H 140/80 94 10/02/20 07:22 10/02/20 07:22 10/02/20 07:22 10/02/20 07:22 10/02/20 07:22 Was Beta Kaitlynn taken within 24 hours: N/A Was Clonidine taken within 24 hours: N/A Social: Social History: Alcohol and No tobacco Exam: Pre-Anes Outpt Exam: alert, oriented x 3, clear to auscultation bilaterally and regular rate & rhythm Airway: Submandibular: WNL Cervical ROM: WNL MP: 2 Dentition: Full CV/HEM: Comments: Jolie Metabolic: Metabolic: Morbid obesity Anesthetic Plan: ASA status: 3 Anesthesia: General Risk of > 500 ml blood loss (7ml/kg in children): No Meds/Allergies Current Medications: Current Medications Generic Name Dose Route Start Last Admin Trade Name Freq PRN Reason Stop Dose Admin Acetaminophen 650 mg 09/30/20 05:58 09/30/20 20:03 Acetaminophen 32 5 Mg Tablet PO 650 mg Q6H PRN Administration Mild/Mod Pain Or Temp >/= 101 Diltiazem HCl 90 mg 10/01/20 15:30 10/02/20 09:34 Diltiazem 60 Mg Tablet PO Not Given Q6H DEYA Folic Acid 1 mg 10/01/20 09:00 10/02/20 09:32 Folic Acid 1 Mg Tablet PO 1 mg DAILY DEYA Administration Furosemide 20 mg 10/01/20 10:15 10/02/20 09:33 Furosemide 20 Mg Tablet PO 20 mg DAILY@0800 DEYA Administration Sodium Chloride 1,000 mls @ 30 ml s/hr 10/02/20 09:30 10/02/20 09:33 Sodium Chloride 0.9% IV 30 mls/hr .Q24H DEYA Administration Multivitamins Ther apeutic 1 tab 10/01/20 09:00 10/02/20 09:32 Multivitamin The rapeutic Tablet PO 1 tab DAILY DEYA Administration Rivaroxaban 20 mg 10/01/20 10:15 10/02/20 09:33 Rivaroxaban 10 M g Tablet PO 20 mg DAILY DEYA Administration Thiamine Mononitra te 100 mg 09/30/20 09:00 10/02/20 09:32 Thiamine 100 Mg Tablet PO 100 mg DAILY DEYA Administration Data Anesthesia CBC & Chem 7: 10/01/20 03:05 10/01/20 03:05 Other Labs: Laboratory Results - last 48 hr 09/30/20 09/30/20 09/30/20 04:45 10:59 10:59 WBC RBC Hgb Hct MCV MCH MCHC RDW Plt Count MPV Neut % (Auto) Lymph % (Auto) [place] % (Auto) Eos % (Auto) Baso % (Auto) Neut # (Auto) Lymph # (Auto) [place] # (Auto) Eos # (Auto) Baso # (Auto) Nucleated RBC % (auto) Nucleated RBCs # Sodium Potassium Chloride Carbon Dioxide Anion Gap BUN Creatinine GFR Calculation Glucose Estimat Average Glucose Hemoglobin A1c Calculated Osmolality Calcium Phosphorus Magnesium Iron 61 TIBC 285 % Saturation 21.4 Unsat Iron Binding 224 Total Bilirubin AST ALT Alkaline Phosphatase Troponin T Hi Sens 6Hr 15.24 H Troponin T Hi Sens 6Hr Delta -4.76 L Total Protein Albumin Globulin Free T4 1.53 Free T3 3.7 10/01/20 10/01/20 10/01/20 03:05 03:05 03:05 WBC 8.2 RBC 5.80 H Hgb 17.3 H Hct 51.7 MCV 89.1 MCH 29.8 MCHC 33.5 RDW 13.6 Plt Count 207 MPV 10.8 H Neut % (Auto) 55.9 Lymph % (Auto) 32.6 [place] % (Auto) 7.9 Eos % (Auto) 2.8 Baso % (Auto) 0.6 Neut # (Auto) 4.58 Lymph # (Auto) 2.7 [place] # (Auto) 0.7 Eos # (Auto) 0.2 Baso # (Auto) 0.1 Nucleated RBC % (auto) 0 Nucleated RBCs # 0.0 Sodium 141 Potassium 4.1 Chloride 105 Carbon Dioxide 24 Anion Gap 16.1 BUN 11 Creatinine 0.7 GFR Calculation 116.7 Glucose 96 Estimat Average Glucose 108 Hemoglobin A1c 5.4 Calculated Osmolality 291 Calcium 7.8 L Phosphorus 2.7 Magnesium 2.3 Iron TIBC % Saturation Unsat Iron Binding Total Bilirubin 0.5 AST 18 ALT 30 Alkaline Phosphatase 73 Troponin T Hi Sens 6Hr Troponin T Hi Sens 6Hr Delta Total Protein 7.0 Albumin 4.1 Globulin 2.9 Free T4 Free T3 Cardiac Studies: No Data to Display
--- NOTE | 2020-10-02 11:03 | ANE.PACU2 ---
Inpatient post-anesthesia follow up: Airway intact: Yes Vital signs: Temperature 98.3 F Pulse Rate [Right] 152 Pulse Rate 76 Respiratory Rate 23 Blood Pressure [Ri ght Arm] 134/102 Blood Pressure 140/80 Pulse Oximetry 94 Oxygen Delivery Me thod [ Room Air Current Rate & Del amadou] Oxygen Delivery Me thod Room Air Oxygen Flow Rate Fraction of Inspir ed Oxygen Hydration adequate: Yes Nausea and vomiting: No Pain level: 1 Mental status: Baseline
--- NOTE | 2020-10-02 11:26 | W.PM.OPSUD ---
Surgery/Procedure H&P Update DATE OF PROCEDURE: October 02, 2020 DATE H&P PERFORMED: 10/01/20 H&P UPDATE INFORMATION: I have reviewed H&P completed within last 30 days, I have examined patient prior to procedure and No changes to prior documentation PREOP DIAGNOSIS: Atrial flutter with rapid ventricular rate PRIMARY INDICATION FOR PROCEDURE: Atrial flutter with rapid ventricular rate PLANNED PROCEDURE: Transesophageal echocardiogram with cardioversion PATIENT REASSESSED PRIOR TO SEDATION, WITH NO CHANGE NOTED: Yes PHYSICAL EXAM: alert, oriented x 3 and clear to auscultation bilaterally OTHER PERTINENT EXAM FINDINGS: Regularly regular, tachycardia at heart rate of 150bpm
--- NOTE | 2020-10-02 11:35 | PM.PROC ---
Procedure Note: Date of procedure: 10/02/20 Pre-procedure diagnosis: Atrial flutter with Rapid ventricular rate Post-procedure diagnosis: same Procedure: AQUILES guided cardioversion Op report anesthesia: MAC Performing Provider: Eros Snow Estimated blood loss (mL): 0 Complications: None Pathology: none sent Condition: stable Disposition: floor Other Information: Patient had new onset atrial flutter with RVR. As rate control strategy failed, we decided to perform AQUILES cardioversion. After patient was sedated by anesthesia team, AQUILES was performed that did not reveal left atrial appendage thrombus. We performed successful DCCV with 100 J shock x1. Patient converted to normal sinus rhythm. Will stay on anticoagulation indefinitely. Need for anticoagulation post cardioversion emphasized. 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
--- NOTE | 2020-10-02 13:08 | P.PN_ITS ---
Subjective Subjective: Interval history: Overnight patient felt okay. Patient still having heart rate going up to 140s on minimal exertion but at rest mostly ranging from 70 to 80 bpm. Patient denies any nausea, vomiting, headache. Because of failed oral rate limiting therapy patient underwent AQUILES cardioversion with cardiology today and return to normal sinus rhythm. Patient tolerated the procedure well. Vitals/I&O/Wt Last Vital Signs Temp 98.3 F 10/02/20 07:22 Pulse 76 10/02/20 07:22 Resp 23 H 10/02/20 07:22 BP 140/80 10/02/20 07:22 Pulse Ox 94 10/02/20 07:22 10/01/20 10/02/20 10/02/20 22:59 06:59 14:59 Intake Total 293 / 653 0 / 653 Output Total 0 / 0 Balance 293 / 653 0 / 653 Physical Exam Narrative: EXAM NARRATIVE: Currently the patient is awake alert oriented. No acute distress. Mood and affect are appropriate. Responses are adequate. Eyes PERRL, extraocular muscles are intact Normal speech No facial asymmetry Neck is supple. No JVD Lungs are clear to auscultation bilaterally. No wheezes or crackles Heart S1, S2, irregular Abdomen soft, obese, nontender, bowel sounds are present Extremities no edema cyanosis or calf tenderness bilaterally No focal weakness. Data : 10/01/20 03:05 10/01/20 03:05 A&P Assessment and plan (1) Atrial flutter: Status: Acute Qualifiers: Atrial flutter type: unspecified Qualified Code(s): I48.92 - Unspecified atrial flutter Additional A&P Information 54-year-old male with no significant past medical history who is presenting with palpitation and is found to have atrial flutter with RVR. A flutter with RVR: Post cardioversion. Normal sinus rhythm now. Cardizem CD 100 mg daily. Xarelto 20 mg oral daily indefinitely for now. Echocardiogram results appreciated for an EF of 65% with grade 2 diastolic dy sfunction, no MR. Given the fact that patient is back in the normal sinus rhythm we will stop diuretic therapy for now. Hypertension: Goal blood pressure less than 140/90 mmHg. Cardizem CD as above for now. If needed can add low-dose lisinopril. Alcohol use: Reports daily alcohol use. Continue with oral thiamine. Check iron panel, vitamin B12, folate levels. CIWA protocols. Blanca will have a DVT prophylaxis as well. Cardiac diet CODE STATUS. He wants to be full code. The plan of care was discussed with the patient and his family members at bedside. They verbalized understanding and agreement. Attestations Medical Necessity Statement*: Patient requires further hospitalization for management of a flutter with RVR requiring AQUILES cardioversion Time Spent in Patient Care: Greater than 35 minutes (>than 50% of time spent in counselling and/or direct pt care on unit) . 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
[2020-10-02] MEDS: dilTIAZem ER (24HR) 120 mg Capsule PO (13:52)
[2020-10-03 04:06] VITALS: BP 148/91; PULSE 78; RESP 21; TEMP 36.6; O2SAT 93
[2020-10-03 05:29] VITALS: PULSE 64
[2020-10-03 08:00] VITALS: BP 143/88; PULSE 74; RESP 12; TEMP 36.7; O2SAT 95
[2020-10-03] MEDS: folic acid 1 mg Tablet PO (08:46)
[2020-10-03] MEDS: multivitamin therapeutic Tablet 1 TAB PO (08:47)
[2020-10-03] MEDS: thiamine 100 mg Tablet PO (08:47)
[2020-10-03] MEDS: rivaroxaban 10 mg Tablet 20 MG PO (08:47)
[2020-10-03] MEDS: dilTIAZem ER (24HR) 120 mg Capsule PO (08:47)
--- NOTE | 2020-10-03 09:13 | P.PN_ITS ---
Subjective Subjective: Interval history: Patient is doing well. He has stayed in normal sinus rhythm. His blood pressure is borderline elevated. Vitals/I&O/Wt Last Vital Signs Temp 98.0 F 10/03/20 08:00 Pulse 74 10/03/20 08:00 Resp 12 10/03/20 08:00 BP 143/88 10/03/20 08:00 Pulse Ox 95 10/03/20 08:00 10/02/20 10/03/20 10/03/20 22:59 06:59 14:59 Intake Total 653 / 653 Balance 653 / 653 Physical Exam Narrative: EXAM NARRATIVE: GENERAL: Patient is alert, awake and oriented x3. [] NECK: No jugular vein distension. [] HEENT: No cyanosis. No icterus. No pallor. [] HEART: Regular S1 and S2. No murmur, rub or gallop. [] LUNGS: Clear to auscultate bilaterally. [] ABDOMEN: Soft, nontender and nondistended. Positive bowel sounds. No guarding, rebound or tenderness. [] CENTRAL NERVOUS SYSTEM: Grossly nonfocal. [] EXTREMITIES: Lower extremities with no edema bilaterally. Pulses palpable in the lower extremities, both dorsalis pedis and posterior tibial. [] Data : 10/01/20 03:05 10/01/20 03:05 A&P Assessment and plan (1) Atrial flutter: Status: Acute Qualifiers: Atrial flutter type: unspecified Qualified Code(s): I48.92 - Unspecified atrial flutter (2) Hypertension: Status: Acute Patient had presented with new onset atrial flutter with RVR. His heart rates were not getting controlled with Cardizem. He underwent successful cardioversion with 100 J shock x1 yesterday and has stayed in normal sinus rhythm Blood pressure is borderline elevated. Initiate lisinopril 5 mg daily. Patient has been informed that he cannot miss any doses of anticoagulation as risk of stroke is elevated post cardioversion. He shows understanding. Had a detailed discussion regarding potential risk factors for atrial flutter/A. fib. I have informed him that his alcohol intake is a potential trigger. Also advised to avoid caffeine. Thank you for involving us with care of this patient. He is ready to be discharged from cardiology standpoint. He can follow-up with us in office in 2 weeks. Please call with questions Attestations Medical Necessity Statement*: Care expected to cross 2 midnights. Coding Level of Care Code Acute Transition Manager for Frankie Dial Diagnoses Atrial flutter I48.92 Atrial flutter type: unspecified Hypertension I10
[2020-10-03 11:40] VITALS: BP 153/93; PULSE 85; RESP 14; TEMP 36.6; O2SAT 96
--- NOTE | 2020-10-03 11:41 | PM.DCS ---
Discharge Providers Date of Admission: 09/30/20 05:57 Date of Discharge: October 03, 2020 Attending Provider at Admission: Mark Bran Attending Provider at Discharge: Jose Driscoll MD Consults: Cardiology:Dr. Snow Primary Care Provider: Sathya Toledo MD Diagnoses at Discharge Discharge Diagnosis (1) Atrial flutter: Status: Acute Qualifiers: Atrial flutter type: unspecified Qualified Code(s): I48.92 - Unspecified atrial flutter (2) Hypertension: Status: Acute Reason for Visit Reason for Visit: afib Hospital Course Hospital Course 54 year old male with no significant past medical history presented to the hospital with significant palpitations that started the night before presentation. He denied any chest pain or shortness of breath. In the emergency room he was found to have a heart rate of 150 bpm. He was put on a Cardizem drip which was transitioned over to oral cardizem and that was uptitrated. Patient's baseline heart rate has been staying around 70 to 80 bpm however as soon as he starts to walk or do any exertion, his heart rate jumps to 140s to 150s. Because of this Cardiology was consulted and he underwent AQUILES cardioversion on 10/02 after which he was in NSR. He was started on Xarelto after discussing anticoagulation with him in detail including benefits vs risk factors. He is being discharged in hemodynamically stable condition with advice to follow up with his PCP on set date with BP diary. Patient would benefit from Sleep study as an outpatient. Plan was discussed with him and his family at bedside and all the questions were answered. Physical Exam Narrative: EXAM NARRATIVE: Currently the patient is awake alert oriented. No acute distress. Mood and affect are appropriate. Responses are adequate. Eyes PERRL, extraocular muscles are intact Normal speech No facial asymmetry Neck is supple. No JVD Lungs are clear to auscultation bilaterally. No wheezes or crackles Heart S1, S2, irregular Abdomen soft, obese, nontender, bowel sounds are present Extremities no edema cyanosis or calf tenderness bilaterally No focal weakness. Discharge Data Data Completed and Pending: Completed Studies During Hospitalization Category Date Time Status XR chest 1V fredy ble [id number] Stat Exams 09/30/20 03:50 Completed CV echo complete* [id number] Routine Ultrasound 09/30/20 08:13 Completed CV echo transesop hageal [id number] Routi ne Ultrasound 10/02/20 08:41 Completed Addt'l Data from Hospital Stay: Laboratory Results WBC 8.2 10^3/uL (4.0- 10.0) 10/01/20 03:05 RBC 5.80 10^6/uL (4.1 -5.3) H 10/01/20 03:05 Hgb 17.3 g/dL (11.7-1 6.6) H 10/01/20 03:05 Hct 51.7 % (42.0-52.0 ) 10/01/20 03:05 MCV 89.1 fL (80-94) 10/01/20 03:05 MCH 29.8 pg (28.0-34. 0) 10/01/20 03:05 MCHC 33.5 g/dL (30.0-3 6.0) 10/01/20 03:05 RDW 13.6 % (12.1-15.1 ) 10/01/20 03:05 Plt Count 207 10^3/cmm (130 -400) 10/01/20 03:05 MPV 10.8 fL (7.4-10.4 ) H 10/01/20 03:05 Neut % (Auto) 55.9 % 10/01/20 03:05 Lymph % (Auto) 32.6 % 10/01/20 03:05 [place] % (Auto) 7.9 % 10/01/20 03:05 Eos % (Auto) 2.8 % 10/01/20 03:05 Baso % (Auto) 0.6 % 10/01/20 03:05 Neut # (Auto) 4.58 10^3/uL (1.8 -7.7) 10/01/20 03:05 Lymph # (Auto) 2.7 10^3/uL (0.8- 4.8) 10/01/20 03:05 [place] # (Auto) 0.7 10^3/uL (0.2- 0.9) 10/01/20 03:05 Eos # (Auto) 0.2 10^3/uL (0.0- 0.8) 10/01/20 03:05 Baso # (Auto) 0.1 10^3/uL (0.0- 0.1) 10/01/20 03:05 Nucleated RBC % (a uto) 0 % 10/01/20 03:05 Nucleated RBCs # 0.0 /100WBC 10/01/20 03:05 PT 12.90 SECONDS (12 .1-14.9) 09/30/20 04:30 INR 0.94 (0.8-1.2) 09/30/20 04:30 D-Dimer 0.31 ug/mIFEU (0- 0.59) 09/30/20 07:03 Sodium 141 mmol/L (136-1 45) 10/01/20 03:05 Potassium 4.1 mmol/L (3.5-5 .1) 10/01/20 03:05 Chloride 105 mmol/L (98-10 7) 10/01/20 03:05 Carbon Dioxide 24 mmol/L (22-29) 10/01/20 03:05 Anion Gap 16.1 (5-19) 10/01/20 03:05 BUN 11 mg/dL (6-20) 10/01/20 03:05 Creatinine 0.7 mg/dL (0.7-1. 2) 10/01/20 03:05 GFR Calculation 116.7 mL/min (90- 130) 10/01/20 03:05 Glucose 96 mg/dL (65-115) 10/01/20 03:05 Estimat Average Gl ucose 108 10/01/20 03:05 Hemoglobin A1c 5.4 % (4.0-6.0) 10/01/20 03:05 Calculated Osmolal ity 291 mOsm/kg (285- 295) 10/01/20 03:05 Calcium 7.8 mg/dL (8.5-10 .5) L 10/01/20 03:05 Phosphorus 2.7 mg/dL (2.5-4. 5) 10/01/20 03:05 Magnesium 2.3 mg/dL (1.7-2. 3) 10/01/20 03:05 Iron 61 ug/dL (59-158) 09/30/20 04:45 TIBC 285 mcg/dl 09/30/20 04:45 % Saturation 21.4 % (20-50) 09/30/20 04:45 Unsat Iron Binding 224 ug/dL (112-34 7) 09/30/20 04:45 Total Bilirubin 0.5 mg/dL (0.15-1 .2) 10/01/20 03:05 AST 18 U/L (0-40) 10/01/20 03:05 ALT 30 U/L (0-41) 10/01/20 03:05 Alkaline Phosphata se 73 IU/L (40-130) 10/01/20 03:05 Troponin T Baselin e 20 ng/L (0-15) H 09/30/20 04:45 Troponin T 120 Min clarice 14.92 ng/L (0-15) 09/30/20 07:03 Delta Troponin T -5.08 ABS# (0-10) L 09/30/20 07:03 Troponin T Hi Sens 6Hr 15.24 ng/L (0-15) H 09/30/20 10:59 Troponin T Hi Sens 6Hr Delta -4.76 ng/L (0-12) L 09/30/20 10:59 NT-Pro-B Natriuret Pep 504 pg/mL (0-125) H 09/30/20 04:45 Total Protein 7.0 g/dL (6.6-8.7 ) 10/01/20 03:05 Albumin 4.1 g/dL (3.5-5.2 ) 10/01/20 03:05 Globulin 2.9 g/dL (1.3-4.6 ) 10/01/20 03:05 Triglycerides 334 mg/dL (0-150) H 09/30/20 04:45 Cholesterol 195 mg/dL (0-200) 09/30/20 04:45 LDL Cholesterol, C alc 94 mg/dL (50-129) 09/30/20 04:45 HDL Cholesterol 34 mg/dL (60-100) L 09/30/20 04:45 LDL/HDL Ratio 2.76 RATIO (0.00- 3.22) 09/30/20 04:45 Cholesterol/HDL Ra sha 5.74 mg/dL (1.0-5 .00) H 09/30/20 04:45 TSH 5.32 uIU/mL (0.27 -4.20) H 09/30/20 04:45 Free T4 1.53 ng/dL (0.82- 1.77) 09/30/20 10:59 Free T3 3.7 PG/ML (2.0-4. 4) 09/30/20 10:59 Impressions Chest X-Ray 09/30/20 03:50 IMPRESSION: ADDENDUM: 10/01/20 1217 IMPRESSION: No acute cardiopulmonary abnormalities are seen in the chest. ECHO: CONCLUSIONS 1-Normal left ventricular cavity size. Normal left ventricular systolic function. No regional wall motion abnormalities. Left ventricular ejection fraction is estimated at 65 %. Grade II/IV diastolic dysfunction, moderately elevated filling pressures. 2-There is no pericardial effusion. 3-No significant valve abnormalities. 4-Pulmonary artery systolic pressure is within normal limits. 5-Right atrial pressure is around 5 mm of mercury. 6-There are no prior echocardiogram studies to compare. Gi Stoll MD (Electronically Signed) Final Date: 30 Sep 2020 21:04 S Vitals: Last Vital Signs Temp 98.0 F 10/03/20 08:00 Pulse 74 10/03/20 08:00 Resp 12 10/03/20 08:00 BP 143/88 10/03/20 08:00 Pulse Ox 95 10/03/20 08:00 Discharge Plan Discharge Patient Disposition: Home Condition: Stable Prescriptions: New Xarelto 10 mg Tablet 20 mg PO DAILY 90 Days Qty: 90 RF: 0 Cardizem CD 120 mg capsule,extended release 24hr 120 mg PO Q24H Qty: 90 RF: 0 lisinopril 5 mg tablet 5 mg PO DAILY Qty: 90 RF: 0 Continued testosterone cypionate 200 mg/mL oil 200 mg IM Q7D RF: 0 Discharge Orders: Discharge Order (Routine); Ordered 10/03/20 Ordered By: Jose Driscoll Referrals: Sathya Toledo MD [Primary Care Provider] - 10/12/20 1:15 pm (You have a hospital followup with Dr. Toledo at [facility] on October 12 at 1:15pm) Discharge Diet: Cardiac Discharge Activity: Resume usual activity Patient Instructions: Diltiazem (By mouth), Lisinopril (By mouth), Rivaroxaban (By mouth), Hypertension, Atrial Flutter (DC), Opioid Safety Activity Restrictions/Additional Instructions: Please make sure that you increase weight lifting gradually. You will be on 3 new medications including Cardizem, lisinopril and Xarelto. Xarelto the blood thinner which needs to continue indefinitely. Please maintain a blood pressure diary at home and follow-up with your primary care provider for up titration of lisinopril as needed. Please make sure about abstinence from alcohol and smoking as discussed in detail. Please try to lose weight and have discussed in detail. You should have a sleep study done as an outpatient for possible sleep apnea. Discharge Attestations Time Spent in Discharge Care*: greater than 30 min Specific Discharge Activities: educating patient, educating and/or supporting family/caregiver, discussing with pcp/other providers, discussing with bilingual patient support caseworker/social workers/dc planners, documenting/other paperwork and evaluating patient/reviewing data Time Spent in Smoking Cessation: more than 10 minutes Status at Discharge: Cognitive status at discharge: cognitively intact, Behavioral status at discharge: cooperative, Functional status at discharge: independent ambulation Overall status at discharge: patient is back to baseline Quality Metrics Clinical Quality Measures During this hospital stay, did patient experience: None Coding Level of Care Code Acute Chg FW DC note Diagnoses Atrial flutter I48.92 Atrial flutter type: unspecified Hypertension I10
[2020-10-03 11:54] VITALS: BP 153/93; PULSE 85; RESP 14; TEMP 36.6; O2SAT 96
--- NOTE | 2020-10-03 12:40 | PC.NURSE ---
Patient education about new medications, activity, and follow up appointments were provided to pt and . Patient and family had no questions or concerns. Patient VS stable upon departure. Pt wheeled to ER exit via wheelchair.
== END 2020-10-03 12:41 | disposition home or self-care (01) ==
LOC: ER 05:18 → CSU 07:16
PROVIDERS: Admitting Provider Internal Medicine; Emergency Provider Emergency Medicine; PCP Family Medicine; Visit Provider Student in an Organized Health Care Education/Training Program
DX: I48.92 Unspecified atrial flutter (principal); I10 Essential (primary) hypertension; Z72.89 Other problems related to lifestyle; Z79.01 Long term (current) use of anticoagulants
CPT/HCPCS: 36415; 71045; 80053; 80061; 83036; 83540; 83550; 83735; 83880; 84100; 84439; 84443; 84481; 84484; 85025; 85378; 85610; 93005; 93306; 93312; 93320; 93325; 94762; 96365; 96366; 96372; 96375; 99285; G0378; J0330; J1650; J2704; J3490; J7030

== ENCOUNTER 2024-10-22 21:49 | Emergency (ER) | payer OTHER, SELFPAY ==
[2024-10-22 21:56] VITALS: BP 151/72; PULSE 68; RESP 14; TEMP 36.5; O2SAT 97
[2024-10-22 22:02] VITALS: BP 152/69; PULSE 73; O2SAT 100
[2024-10-22 22:28] LABS: Basophils % 0.1 %; Eosinophils # 0.4 10^3/uL (0.0-0.8); Eosinophils % 5.7 %; Hematocrit 35.8 % (37-53); Lymphocytes % 15.2 %; Mean Corpuscular HGB Conc 34.6 g/dL (30-55); Mean Corpuscular Hemoglobin 30.3 pg (27-33); Mean Corpuscular Volume 87.5 fl (82-101); Monocytes # 0.9 10^3/uL (0.2-0.9); Monocytes % 13.6 %; Neutrophils # 4.43 10^3/uL (1.8-7.7); Neutrophils % 65.1 %; Nucleated Red Blood Cells % 0 %; Platelet Count 170 10^3/cmm (157-399); Red Blood Count 4.09 10^6/uL (3.85-5.65); Red Cell Distribution Width 13.2 % (12.1-15.1); White Blood Count 6.82 10^3/uL (3.29-11.43)
[2024-10-22 22:32] VITALS: BP 167/85; PULSE 70; O2SAT 98
[2024-10-22 22:38] LABS: Alanine Aminotransferase 15 U/L (0-41); Albumin Level 3.5 g/dL (3.5-5.2); Alkaline Phosphatase 92 U/L (40-130); Anion Gap 16.1 (5-19); Aspartate Amino Transferase 13 U/L (0-40); Blood Urea Nitrogen 11 mg/dL (8-23); Calcium 8.7 mg/dL (8.5-10.5); Carbon Dioxide 25 mmol/L (22-29); Chloride 105 mmol/L (98-107); Creatine Phosphokinase 30 U/L (39-308); Creatinine Clr Calc Pharmacy 140.1435; Globulin 2.9 g/dL (1.3-4.6); Glucose 138 mg/dL (65-115); Osmolality Calculated 296 mOsm/kg (285-295); Potassium 4.1 mmol/L (3.5-5.1); Sodium 142 mmol/L (136-145); Total Bilirubin 0.4 mg/dL (0.15-1.2); Total Protein 6.4 g/dL (6.6-8.7)
[2024-10-22 23:02] VITALS: BP 167/85; PULSE 69; O2SAT 96
--- NOTE | 2024-10-22 23:06 | ED_ITS ---
HPI - General Adult 2 General: Chief complaint: General Medical Stated complaint: mucle aches rash on back swelling Time Seen by Provider: 10/22/24 22:23 Source: patient Mode of arrival: ambulatory Limitations: no limitations History of Present Illness: 58yo male presents with significant othe r for evaluation of possible medication side effect. Patient recently started Braftovi for his stage IV melanoma and believes he may have developed rhabdomyolysis from that medication. He reports he had gamma knife surgery 1 week ago and took his first dose of Braftovi Sunday. States that he did continue to increase his dosing until he could not handle the side effects anymore. Reports that he never made it to a full dose. States that he cannot sit still. Reports that his feet were swollen and he did have some redness to the bottoms of the feet and the palms of his hands which has since resolved. States that he does have a rash to his back that developed almost immediately. Reports that his hands and feet feel as if they are raw. States that the muscle pain is the worst. He has been taking acetaminophen, ibuprofen, and Benadryl at home with no improvement. Associated symptoms: Reports rash (Torso); Deny chest pain, dyspnea or vomiting Related Data Home Medications ?Medication ?Instructions ?Recorded ?Confirmed testosterone cypionate 200 mg/mL 200 mg IM Q7D 1 02/14/22 intramuscular oil carvedilol 12.5 mg tablet (Coreg) 12.5 mg PO BID 12/0102/14/22 Previous Rx's ?Medication ?Instructions ?Recorded diltiazem HCl 120 mg 120 mg PO Q24H #90 caps 09/12 07/04 capsule,extended release 24 hr (Cardizem CD) lisinopril 5 mg tablet 5 mg PO DAILY #90 tabs 10/02 hydrocodone 5 mg-acetaminophen 325 1 tab PO Q6H PRN pa in #10 tabs 10/22/24 mg tablet ondansetron 4 mg disintegrating 4 mg PO TID PRN nausea and 10/22/24 tablet vomiting #20 tabs Allergies Allergy/AdvReac Type Severity Reaction Status Date / Time No Known Allergies Allergy Verified 02/14/22 11:47 Review of Systems 2 Const: Reports: body aches; Denies: fever(s) or chills Card: Denies: chest pain Resp: Denies: dyspnea GI: Denies: vomiting Musc: Reports: muscle cramps Skin/Breast: Reports: rash (Torso) and erythema (Palms and feet, resolved) PFSH ED 2 PFSH: Medical History History of malignant melanoma Hypertension Social History Smoking and tobacco/nicotine status: never used tobacco/nicotine Alcohol intake: current Physical Exam 2 Const: COMMON NORMALS: no acute distress, patient oriented x3, healthy appearing and alert GENERAL APPEARANCE: cooperative O RIENTATION/CONSCIOUSNESS: Yes awake OTHER: Patient is ambulatory to the exam room unassisted. He is sitting upright on the stretcher in no acute distress. He is able to give history with no difficulty. He is interactive with exam appropriately. Significant other is at bedside HENMT: COMMON NORMALS: normocephalic and atraumatic HEAD & SCALP: n ormocephalic and atraumatic Chest: CHEST: Yes Symmetrical chest wall rise Resp: COMMON NORMALS: normal respiratory effort EFFORT & INSPECTION: Yes able to speak in complete sentences Extremity: COMMON NORMALS: full ROM Neuro: COMMON NORMALS: patient oriented x3 SENSORIUM/ORIENTATION: Yes alert Psych: COMMON NORMALS: cooperative Skin: RASHES: rashes noted (Papular rash torso) Course 2 Vital Signs: Vital signs: Vital Signs Temperature 97.7 F 10/22/24 21:56 Pulse Rate 69 10/22/24 23:26 Respiratory Rate 14 10/22/24 21:56 Blood Pressure 167/85 10/22/24 23:26 Pulse Oximetry 96 10/22/24 23:26 [facility] - General Adult Medical Decision Making 58yo male presents with significant other for evaluation of possible medication side effect. Patient recently started Braftovi for his stage IV melanoma and believes he may have developed rhabdomyolysis from that medication, which is a known side effect. Patient is nontoxic in appearance. Vital signs are stable. No leukocytosis, white blood cell count is 6.82. CK is noted to be 30, actually a little low. Glucose is at 138, no electrolyte, renal, or hepatic abnormalities noted. Discussed these findings with patient. Review of the medication Braftovi reveals known side effects include acneiform eruption, erythema of the skin, insomnia, peripheral neuropathy, musculoskeletal pain, and myopathies. Discussed the side effects with patient and family. Advised all of his symptoms are likely related to side effect from the medication. Discussed with patient we would treat him with pain medication while in the emergency department and send short course of hydrocodone to his pharmacy. Recommend he contact his doctor tomorrow with an update of his symptoms and to discuss the side effects. Return precautions provided. Patient states understanding and has no further questions or concerns at this time. Lab Data I reviewed the patient's lab results. 10/22/24 22:17 10/22/24 22:17 Laboratory Results WBC 6.82 10^3/uL (3.29-11.43) 10/22/24 22: RBC 4.09 10^6/uL (3.85-5.65) 10/22/24 22:17 Hgb 12.40 g/dL (11.27-16.99) 10/22/24 22:17 Hct 35.8 % (37-53) L 10/22/24 22: MCV 87.5 fl (82-101) 10/22/24 22:17 MCH 30.3 pg (27-33) 10/22/24 22:17 MCHC 34.6 g/dL (30-55) 10/22/24 22:17 RDW 13.2 % (12.1-15.1) 10/22/24 22:17 Plt Count 170 10^3/cmm (157-399) 10/22/24 22:17 MPV 10.0 fL (7.4-10.4) 10/22/24 22:17 Neut % (Auto) 65.1 % 10/22/24 22:17 Lymph % (Auto) 15.2 % 10/22/24 22:17 [place] % (Auto) 13.6 % 10/22/24 22:17 Eos % (Auto) 5.7 % 10/22/24 22:17 Baso % (Auto) 0.1 % 10/22/24:17 Neut # (Auto) 4.43 10^3/uL (1.8-7.7) 10/22/24 22:17 Lymph # (Auto) 1.0 10^3/uL (0.8-4.8) 10/22/24 22:17 [place] # (Auto) 0.9 10^3/uL (0.2-0.9) 10/22/24 22:17 Eos # (Auto) 0.4 10^3/uL (0.0-0.8) 10/22/24 22:17 Baso # (Auto) 0.0 10^3/uL (0.0-0.1) 10/22/24 22:17 Nucleated RBC % (auto) 0 % 10/22/24 22:17 Nucleated RBCs # 0.0 /100WBC 10/22/24 22:17 Sodium 142 mmol/L (136-145) 10/22/24 22:17 Potassium 4.1 mmol/L (3.5-5.1) 10/22/24 22:17 Chloride 105 mmol/L (98-107) 10/22/24 22:17 Carbon Dioxide 25 mmol/L (22-29) 10/22/24 22:17 Anion Gap 16.1 (5-19) 10/22/24 22:17 BUN 11 mg/dL (8-23) 10/22/24 22:17 Creatinine 0.7 mg/dL (0.7-1.2) 10/22/24 22:17 GFR Calculation 115.0 mL/min (90-130) 10/22/24 22:17 Glucose 138 mg/dL (65-115) H 10/22/24 22:17 Calculated Osmolality 296 mOsm/kg (285-295) H 10/22/24 22:17 Calcium 8.7 mg/dL (8.5-10.5) 10/22/24 22:17 Total Bilirubin 0.4 mg/dL (0.15-1.2) 10/22/24 22:17 AST 13 U/L (0-40) 10/22/24 22:17 ALT 15 U/L (0-41) 10/22/24 22:17 Alkaline Phosphatase 92 U/L (40-130) 10/22/24 22:17 Creatine Kinase 30 U/L (39-308) L 10/22/24 22:17 Total Protein 6.4 g/dL (6.6-8.7) L 10/22/24 22:17 Albumin 3.5 g/dL (3.5-5.2) 10/22/24 22:17 Globulin 2.9 g/dL (1.3-4.6) 10/22/24 22:17 No radiology studies performed this visit Discharge Plan Discharge Patient Disposition: Home Clinical Impression: Medication side effects, Metastatic melanoma Condition: Stable Prescriptions: New ondansetron 4 mg tablet,disintegrating 4 mg PO TID PRN (Reason: nausea and vomiting) Qty: 20 0RF hydrocodone-acetaminophen 5-325 mg tablet 1 tab PO Q6H PRN (Reason: pain) Qty: 10 0RF No Action carvedilol [Coreg] 12.5 mg tablet 12.5 mg PO BID Rx Instructions: must administer with a meal/food testosterone cypionate 200 mg/mL oil 200 mg IM Q7D Rx Instructions: on Cardizem CD 120 mg capsule,extended release 24hr 120 mg PO Q24H Qty: 90 0RF lisinopril 5 mg tablet 5 mg PO DAILY Qty: 90 0RF Discharge Orders: Discharge ED (Routine); Ordered 10/22/24 Ordered By: Horacio Ivy Referrals: Sathya Toledo MD [Primary Care Provider, [facility]] Patient Instructions: Opioid Safety, Pain Management Activity Restrictions/Additional Instructions: Your labs were grossly unremarkable. Your CK was a little low, so no indication of rhabdomyolysis Other side effects from the Braftovi are: acneiform abruption (rash) 8%, erythema of the skin 16%, insomnia 10 to 13%, peripheral neuropathy 12%, musculoskeletal pain 48%, and myopathy 33%. He did receive morphine and Zofran while in the emergency department to help with the pain. Prescription of [place] and Zofran were sent to your pharmacy. Please take this medication on an as-needed basis Please contact your doctor tomorrow with an update of your symptoms and to discuss the side effects Return to emergency department if any rapid worsening symptoms and as needed Print Language: Cambodian Coding Level of Care Code ED Mapping Technician for Frankie Dial
[2024-10-22] MEDS: morphine 4 mg/mL SDV 1 mL IVP (23:17)
[2024-10-22] MEDS: HYDROcodone-acetaminophen 5-325 mg Tablet 1 TAB PO (23:18)
[2024-10-22] MEDS: ondansetron 2 mg/ML SDV 2 mL 4 MG IVP (23:18)
[2024-10-22 23:26] VITALS: BP 167/85; PULSE 69; O2SAT 96
== END 2024-10-22 23:27 | disposition home or self-care (01) ==
PROVIDERS: Emergency Provider Nurse Practitioner; PCP Family Medicine
DX: C43.9 Malignant melanoma of skin, unspecified (principal); R21 Rash and other nonspecific skin eruption; M79.10 Myalgia, unspecified site; C79.9 Secondary malignant neoplasm of unspecified site; Z79.899 Other long term (current) drug therapy; Z79.890 Hormone replacement therapy; I10 Essential (primary) hypertension; T45.1X5A Adverse effect of antineoplastic and immunosuppressive drugs, initial encounter
CPT/HCPCS: 80053; 82550; 85025; 96374; 96375; 99284; J2270; J2405; J9999